=== PATIENT | male | born 1960 | race African-American/Black ===

== ENCOUNTER 2020-04-02 16:04 | Emergency (ER) | payer MEDICAID ==
[~2020-04-02] VITALS: Ht 182.9 cm; Wt 92.0 kg
[2020-04-02 16:06] VITALS: BP 133/86
[2020-04-02] MEDS ORDERED: METOCLOPRAMIDE HCL 10MG/2ML VIAL IM NR (17:30)
[2020-04-02] MEDS ORDERED: MAGNESIUM/ALUMINUM HYDROXIDE/SIMETHICONE 30ML UDC PO NR (17:30)
[2020-04-02 17:44] LABS: BASOPHILS % 0.4 % (0.0-2.0); HEMATOCRIT. 43.7 % (42.0-52.0); LYMPHOCYTES % 8.2 % (20.0-50.0); MEAN CORPUSCULAR HEMOGLOBIN 33.1 pg (28.0-32.0); MEAN CORPUSCULAR VOLUME 96.7 fL (80.0-94.0); MEAN PLATELET VOLUME 6.8 fl (7.4-10.4); MONOCYTES % 1.5 % (2.0-8.0); NEUTROPHILS % 89.9 % (40.0-76.0); PLATELET 209 x1000/uL (130-400); RED BLOOD CELL COUNT 4.52 mill/uL (4.7-6.1); RED CELL DISTRIBUTION WIDTH 13.8 % (11.6-14.6)
[2020-04-02 17:52] LABS: CHLORIDE 108 mEq/L (98-107)
[2020-04-02] MEDS ORDERED: ONDA4TAB5 MT (21:06)
[2020-04-02] MEDS ORDERED: IMOD MT (21:06)
== END 2020-04-02 21:34 | disposition home or self-care (01) ==
LOC: ER 16:04
DX: R10.9 Unspecified abdominal pain (principal); R19.7 Diarrhea, unspecified; F12.10 Cannabis abuse, uncomplicated; R11.10 Vomiting, unspecified; F10.99 Alcohol use, unspecified with unspecified alcohol-induced disorder; Y90.0 Blood alcohol level of less than 20 mg/100 ml
CPT/HCPCS: 36415; 80048; 80076; 83690; 85025; 93005; 96372; 99283; J2765